=== PATIENT | male | born 1995 | race Caucasian/White ===

== ENCOUNTER 2020-08-29 13:55 | Emergency (ER) | payer OTHER ==
[~2020-08-29] VITALS: Ht 177.8 cm; Wt 83.9 kg
[~2020-08-29 13:55] MED LIST: CYMBALTA60 MG PO; FLEXERIL PO; IBUPROFEN 200200 M1 PO; LEVOTHYROXINE0.05 MG PO; NAPROSYN500 MG PO; NORCO 5-325 TA1 EACH PO; NORVASC5 MG PO; PREDNISONE 10 M10 MG PO; SERTRALINE HCL50 MG PO; UNICOMPLEX M TA1 TA1 PO; VYVANSE50 MG PO
[2020-08-29] MEDS ORDERED: ZOLPIDEM TARTRA10 MG PO (15:00)
[2020-08-29] MEDS ORDERED: ALPRAZOLAM 0.50.5 M1 PO (15:01)
[2020-08-29 15:06] LABS: ABSOLUTE NEUTROPHILS 7.2 thou/uL (1.4-8.2); BASOPHILS 0.2 % (0.0-2.0); HEMOGLOBIN 14.4 gm/dL (14.0-18.0); LYMPHOCYTES 9.7 % (24.0-44.0); MCH 28.7 pg (26.0-34.0); MCHC 33.4 g/dL (28.0-37.0); MONOCYTES 5.9 % (1.0-8.0); PLATELET COUNT 221 thou/uL (150-400); POLYS 83.2 % (36.0-66.0); RDW 12.4 % (10.5-14.5); WBC 8.7 thou/uL (4.0-11.0)
[2020-08-29 15:09] LABS: CALCIUM 9.1 mg/dL (8.5-10.1); CREATININE 1.1 mg/dL (0.7-1.3); POTASSIUM 3.8 mmol/L (3.5-5.1)
[2020-08-29 15:15] LABS: ALBUMIN 4.6 g/dL (3.4-5.0); TOTAL BILIRUBIN 0.3 mg/dL (0.2-1.0); TOTAL PROTEIN 7.7 g/dL (6.4-8.2)
[2020-08-29 15:18] LABS: URINE BILIRUBIN NEGATIVE (Negative); URINE BLOOD NEGATIVE (Negative); URINE CLARITY CLEAR; URINE COLOR YELLOW; URINE GLUCOSE-RANDOM* NEGATIVE (Negative); URINE KETONES NEGATIVE (Negative); URINE LEUKOCYTES-REFLEX NEGATIVE (Negative); URINE NITRITE-REFLEX NEGATIVE (Negative); URINE PROTEIN (DIPSTICK) 1+ (Negative); URINE SPECIFIC GRAVITY >= 1.030 (1.005-1.035); URINE UROBILINOGEN 0.2 E.U./dl (0.2-1.0)
[2020-08-29 15:29] LABS: CASTS None Seen /LPF (None Seen)
[2020-08-29 15:30] LABS: SQUAMOUS 0-3 Few /LPF (0-3)
[2020-08-29 15:31] LABS: BACTERIA-REFLEX 1-9 Few /HPF (None Seen); CRYSTALS None Seen /LPF (None Seen); URINE RBC None Seen /HPF (0-2); URINE WBC-REFLEX 0-5 Rare /HPF (0-5)
[2020-08-29 15:35] LABS: AMP/METHAMP Negative (Negative); BARBITURATES Negative (Negative); BENZODIAZEPINES Negative (Negative); COCAINE Negative (Negative); METHADONE Negative (Negative); OPIATES POSITIVE (Negative); PCP Negative (Negative)
[2020-08-29] MEDS ORDERED: NORCO 5-325 TA1 EAC2 PO (15:44)
[2020-08-29 15:48] VITALS: BP 139/85
--- NOTE | 2020-08-29 15:59 | EKG ---
[facility] [place] [address] ELECTROCARDIOGRAM REPORT Name: ANNA MARIE SILVER KHUSHBU Room #: [facility]#: [id number] Admission: 08/29/20 Attend Phys: Discharge: 08/29/20 Date of : [birth year] Report #: [id number] THIS REPORT FOR: cc: Shen Gonzalez Russell J. DO Santiago, Patrick MD [facility] ~ THIS REPORT FOR: //name// [facility] ED Test Date: 2020-08-29 Test Time: 15:41:51 Pat Name: ANNA MARIE SILVER Department: Room: Gender: Center Administrator: : 1995 Requested By: Tahis Bonilla Order Number: [id number] MD: Reji Brown Measurements Intervals [place] Rate: 85 P: 44 TN: 146 QRS: -8 QRSD: 115 T: 28 QT: 376 QTc: 447 Interpretive Statements Sinus rhythm J-Point elev, probable normal early repol pattern No previous ECG available for comparison Electronically Signed On 08-29-2020 15:59:05 CDT by Reji Brown [email or web address] <ELECTRONICALLY SIGNED> By: Reji Brown MD, FACC 08/29/20 1559 1541 1541 Reji Brown MD, [facility] /EPI
== END 2020-08-29 15:48 | disposition home or self-care (01) ==
LOC: ER 13:55
PROVIDERS: Physician Assistant
DX: R56.9 Unspecified convulsions (principal); I10 Essential (primary) hypertension; E03.9 Hypothyroidism, unspecified; Z79.899 Other long term (current) drug therapy; Z88.8 Allergy status to other drugs, medicaments and biological substances